=== PATIENT | female | born 1955 | race Caucasian/White ===

== ENCOUNTER 2017-10-09 15:03 | Emergency (ER) | payer SELFPAY ==
[~2017-10-09] VITALS: Ht 162.6 cm; Wt 104.3 kg
[~2017-10-09 15:03] MED LIST: ALBUTEROL2.5 MG/3 M INH/SOL; AMOXICILLIN250 M3 PO; AMOXICILLIN875 M1 PO; IBUPROFEN600 M1 PO; LEVOTHYROXINE25 MCG PO; LISINOPRIL-HCT1 EAC2 PO; PERCOCET 5-3251 EACH PO; PREDNISONE20 M1 PO; PROAIR HFA8.5 GM INH; TESSALON PERLE100 M1 PO; ZOFRAN ODT4 MG PO
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
[2017-10-09 20:02] VITALS: BP 112/56
== END 2017-10-09 20:07 ==
LOC: ERH 15:03
DX: S39.012A Strain of muscle, fascia and tendon of lower back, initial encounter (principal); S06.0X0A Concussion without loss of consciousness, initial encounter; V49.50XA Passenger injured in collision with unspecified motor vehicles in traffic accident, initial encounter; Y92.9 Unspecified place or not applicable
CPT/HCPCS: 72050; 72110; 96372